=== PATIENT | female | born 1960 | race Caucasian/White ===

== ENCOUNTER 2017-04-16 17:15 | Inpatient (IN) | payer OTHER ==
[2017-05-01] MEDS ORDERED: Heparin 5,000 UNITS/ML VIAL ONE (06:31)
[2017-05-01] MEDS ORDERED: Bupivacaine HCl 0.5%/Epinephrine 1:200,000/PF 30 ml Vial ONE (06:49)
[2017-05-01] MEDS ORDERED: Midazolam HCl 2 mg/2 ml Vial ONE ×3 (06:52→07:05)
[2017-05-01] MEDS ORDERED: Fentanyl 100 MCG/2 ML VIAL ONE ×3 (06:52→07:01)
[2017-05-01] MEDS ORDERED: Dexamethasone 4 mg/ml Vial ONE (07:02)
[2017-05-01] MEDS ORDERED: Ketorolac Tromethamine 30 MG/ML VIAL ONE (07:35)
[2017-05-01] MEDS ORDERED: Ondansetron HCl/PF 4 MG/2 ML Vial ONE (07:35)
[2017-05-01] MEDS ORDERED: Dexamethasone 20 MG/5 ML VIAL ONE (07:35)
[2017-05-01] MEDS ORDERED: Glycopyrrolate 0.2 MG/ML 5 ML SYRINGE ONE (07:35)
[2017-05-01] MEDS ORDERED: ePHEDrine/0.9% NaCl/PF SYRINGE 50 mg/10 ml ONE (07:35)
[2017-05-01] MEDS ORDERED: Lidocaine 1% PF 5 ML VIAL ONE (07:35)
[2017-05-01] MEDS ORDERED: Propofol 200 MG/20 ML VIAL ONE (07:35)
[2017-05-01 07:37] LABS: Hemoglobin A1c 5.9 % (4.0-6.0)
[2017-05-01] MEDS ORDERED: Fentanyl 20 MCG/ML 250 ML ONE (09:00)
[2017-05-01] MEDS ORDERED: Fentanyl 5000 MCG/250 ML CADD IVPB PRN (09:01)
[2017-05-01] MEDS ORDERED: Promethazine HCl 25 MG/ML VIAL IM PRN ×3 (09:01→12:02)
[2017-05-01] MEDS ORDERED: Naloxone HCl 0.4 mg/ml Vial IV PRN (09:01)
[2017-05-01] MEDS ORDERED: Meperidine HCl/PF 25 MG/ML VIAL SLOW IVP PRN (09:01)
[2017-05-01] MEDS ORDERED: Zolpidem Tartrate 5 MG TAB PO PRN (09:01)
[2017-05-01] MEDS ORDERED: diphenhydrAMINE HCl 50 MG/ML 1 ML VIAL IM PRN (09:01)
[2017-05-01] MEDS ORDERED: diphenhydrAMINE HCl 25 MG CAP PO PRN (09:01)
[2017-05-01] MEDS ORDERED: Promethazine HCl 25 MG/ML VIAL SLOW IVP PRN (09:01)
[2017-05-01] MEDS ORDERED: Ondansetron HCl/PF 4 MG/2 ML Vial IVP PRN ×3 (09:01→12:02)
[2017-05-01] MEDS ORDERED: diphenhydrAMINE HCl 50 MG/ML 1 ML VIAL IVP PRN ×2 (09:01→12:02)
[2017-05-01] MEDS ORDERED: Ketorolac Tromethamine 30 MG/ML VIAL IVP PRN (09:01)
[2017-05-01] MEDS ORDERED: Communication Order-Pharmacy FS SCH (09:15)
--- NOTE | 2017-05-01 09:25 | RAD ---
SINGLE VIEW OF THE CHEST: Comparison: None. History: Pre-operative radiograph. FINDINGS: Single view of the chest shows a normal sized cardiomediastinal silhouette. There is no evidence of consolidation, mass, or pleural effusion. The bones are unremarkable. IMPRESSION: No evidence of acute cardiopulmonary disease. POS: [facility]
--- NOTE | 2017-05-01 09:45 | OP ---
DATE OF PROCEDURE: 05/01/2017 PREOPERATIVE DIAGNOSIS: Morbid obesity with a BMI of 40. POSTOPERATIVE DIAGNOSIS: Morbid obesity with a BMI of 40. PROCEDURES PERFORMED: 1. Laparoscopic sleeve gastrectomy. 2. Roscoe staple line reinforcements and 38 Upper Sorbian bougie. 3. EGD. SURGEON: Dr. Subramanian. ANESTHESIA: General. ESTIMATED BLOOD LOSS: Minimal. COMPLICATIONS: None. SPECIMEN: Stomach. FINDINGS: Normal postoperative EGD. INDICATION: The patient is a 57-year-old female who presents for weight loss surgery, has a long hi story of being overweight. She has been in our preoperative seminar as well as the sleeve gastrecto my education classes. She has had a psychologic evaluation. She understands risks, benefits, speci fic to sleeve as well as potential alternative procedures for weight loss. She gives consent. TECHNIQUE: The patient was taken to the operating room and laid supine on the operating room table. After general anesthetic was obtained, the arms and legs were double strapped to bariatric table. OG tube was used to decompress the stomach. Left subcostal 5-mm Optiview trocar was placed in the usual fashion and high-flow pneumoperitoneum was obtained. Left and right abdominal 12-mm port and a right subcostal 5-mm port were all placed under direct visualization. A 5 mm incision made at the xiphoid and the Katelin was used to raise the liver off the GE junction. Short gastrics were corine en down from a distance of 5 cm proximal to the pylorus all the way up to the angle of His. The pos terior fundus, left cipriano and angle of His was completely dissected. All posterior stomach adhesions were taken down. The OG tube was removed and a 38 bougie was brought in and its tip left in the an trum of the stomach. Multiple loads of an Adell stapling device with Roscoe staple line reinforceme nts were used to perform the sleeve. The first was a green load. The rest were all gold loads all the way to the angle of His. The first load was fired up at a distance of 6 cm proximal to the pylo catia angled up towards the incisura. Care was taken to avoid being too close to the incisura. Multi ple loads were then fired up and the stomach was completely transected at the angle of His. The sto mach was removed from left abdominal incision. This fascial defect was closed using GraNee needle a nd 0 Vicryl tie. All port sites were infiltrated using local anesthetic. A few bleeders on the sta ple line were clipped using the laparoscopic clipping device. EGD scope was passed via the esophagu s, stomach to the level of the duodenum without obstruction. There was no stricture at the incisura . There was no air leakage through the staple line. EGD scope was used to decompress the stomach, was pulled and removed. The Katelin retractor was removed under visualization without bleeding. Pneumoperitoneum was let down. The Vicryl was used to close the fascial defect from left abdominal incision. All incisions were irrigated and closed using 4-0 Monocryl and Dermabond. The patient wa s en route to recovery in stable condition. All instrument counts, needle counts, and lap counts we re correct.
[2017-05-01] MEDS ORDERED: Dextrose 5% in Water 1,000 ML IV PRN (12:02)
[2017-05-01] MEDS ORDERED: Dextrose 50% Abboject 50 ML SYRINGE SLOW IVP PRN (12:02)
[2017-05-01] MEDS ORDERED: Pantoprazole 40 MG VIAL IVP SCH (12:15)
[2017-05-01] MEDS: Acetaminophen 1,000 MG in Premix Bag 1 BAG IVPB SCH ×2 (15:55→19:55)
[2017-05-01] MEDS: D5 1/2 NS w/20 mEq KCL 1,000 ML IV SCH ×2 (16:17→20:54)
[2017-05-01 19:39] VITALS: BMI 40.8
[2017-05-01] MEDS ORDERED: Enoxaparin Sodium 40 MG/0.4 ML SYRINGE SC SCH (21:00)
[2017-05-02] MEDS: Acetaminophen 1,000 MG in Premix Bag 1 BAG IVPB SCH (01:42)
[2017-05-02 06:38] LABS: #Eosinphils 0.1 thou/uL (0.0-0.7); #Lymphocytes 2.7 thou/uL (1.20-3.40); #Monocytes 1.1 thou/uL (0.11-0.59); #Neutrophils 8.1 thou/uL (1.40-6.50); %Basophils 0.4 % (0.0-1.0); %Lymphocytes 22.2 % (21.0-51.0); %Monocytes 8.8 % (0.0-10.0); Hematocrit 40.4 % (36.0-47.0); Mean Platelet Volume 8.4 fL (7.4-10.4); Red Blood Cell (RBC) Count 4.54 mill/uL (4.20-5.40)
[2017-05-02] MEDS: D5 1/2 NS w/20 mEq KCL 1,000 ML IV SCH ×2 (06:50→11:43)
[2017-05-02 06:56] LABS: Anion Gap 18 mmol/L (10-20); BUN (Urea Nitrogen) 8 mg/dL (9.8-20.1); Calc. Creatinine Clearance 124 mL/min (70-130); Calcium 9.1 mg/dL (7.8-10.44); Carbon Dioxide 18 mmol/L (22-29); Chloride 108 mmol/L (98-107); Estimated GFR-MDRD 76
[2017-05-02] MEDS ORDERED: Pantoprazole 40 MG VIAL IVP SCH (09:00)
--- NOTE | 2017-05-02 09:35 | RAD ---
15 ML SWALLOW: History: Status post bariatric surgery. Post op day 1. Comparison: None Exposure: 0.6 minutes, 18.699 mGy*cm\S\2 FINDINGS: The patient was administered 15 cc of Gastrografin. No evidence of delay in passage. No leak or extr avasation. IMPRESSION: No leak or extravasation. POS: [facility]
[2017-05-02] MEDS ORDERED: Hydrocodone-Acetamin 15 ML UDCUP PO PRN (11:47)
[2017-05-02 12:06] VITALS: BP 126/84; TEMP 98.5
[2017-05-11] MEDS ORDERED: Hydrocodone-Acetamin 15 ML UDCUP PO PRN (12:02)
== END 2017-05-02 12:40 | disposition home or self-care (01) | DRG 621 ==
LOC: SURG A 05-01 06:11
PROVIDERS: ADMIT Surgery; ATTEND Surgery
PROC: 0DB64Z3 Excision of Stomach, Percutaneous Endoscopic Approach, Vertical (ICD-10-PCS; principal; 2017-05-01)
PROC: 0DJ08ZZ Inspection of Upper Intestinal Tract, Via Natural or Artificial Opening Endoscopic (ICD-10-PCS; 2017-05-01)
DX: E66.01 Morbid (severe) obesity due to excess calories (principal); E78.5 Hyperlipidemia, unspecified; Z68.41 Body mass index [BMI] 40.0-44.9, adult; Z88.8 Allergy status to other drugs, medicaments and biological substances; M19.90 Unspecified osteoarthritis, unspecified site; K57.90 Diverticulosis of intestine, part unspecified, without perforation or abscess without bleeding; F41.9 Anxiety disorder, unspecified
CPT/HCPCS: 36415; 71010; 74241; 80048; 83036; 85025; 88307; 88312; 94760; C9113; J0131; J0670; J1100; J1170; J1644; J1650; J1885; J2001; J2250; J2405; J2704; J3010

== ENCOUNTER 2021-03-18 15:44 | Outpatient (CLI) | payer OTHER ==
[2021-03-18 17:16] LABS: Bilirubin Neg (Negative); Blood, Urine Negative (Negative); Clarity Clear (Clear); Glucose, Urine (Dipstick) Normal (Negative); Ketone, Urine Negative (Negative); Leukocyte Negative (Negative); Nitrite Negative (Negative); Protein, Urine (Dipstick) Negative (Neg-Trace); Specific Gravity, Urine 1.005 (1.002-1.036); Urobilinogen Normal mg/dL (Less than 2); pH, Urine 6.5 (5.0-9.0)
[2021-03-18 17:36] LABS: #Basophils 0.1 10x3/uL (0.0-0.2); #Eosinphils 0.3 10x3/uL (0.0-0.5); #Monocytes 0.6 10x3/uL (0.0-1.1); #Neutrophils 5.5 10x3/uL (1.5-8.4); %Basophils 1.1 % (0.0-2.0); %Eosinophils 2.8 % (0.0-6.0); %Lymphocytes 28.8 % (18.0-47.0); %Monocytes 6.8 % (0.0-10.0); %Neutrophils 60.2 % (40.0-75.0); Mean Corpuscular HGB CONC 33.1 g/dL (32.0-36.0); Mean Corpuscular Hemoglobin 28.6 pg (27.0-33.0); Mean Corpuscular Volume 86.6 fl (81.6-98.3); Mean Platelet Volume 9.7 fl (7.4-10.4); Platelet Count 305 10x3/uL (150-450); RBC Distribution Width 13.4 % (11.5-14.5); Red Blood Cell (RBC) Count 4.54 10x6/uL (3.90-5.03); White Blood Cell (WBC) Count 9.1 10x3/uL (3.5-10.5)
[2021-03-18 17:55] LABS: Bacteria/HPF Rare-Few HPF (None Seen); RBC/HPF None Seen HPF (0-3); Squamous Epithelial 0-3 HPF (0-3); WBC/HPF 0-3 HPF (0-3)
[2021-03-19 16:44] LABS: SARS-CoV-2 PCR by NAA Not Detected (NotDetected)
== END 2021-03-18 15:45 | disposition home or self-care (01) ==
LOC: LABBT 15:44
PROVIDERS: ATTEND Orthopaedic Surgery Hand Surgery
DX: Z01.818 Encounter for other preprocedural examination (principal); S52.501A Unspecified fracture of the lower end of right radius, initial encounter for closed fracture; Z20.822 Contact with and (suspected) exposure to COVID-19
CPT/HCPCS: 81001; 85025; 93005; 93010; U0003; U0005

== ENCOUNTER 2021-03-23 11:32 | Day surgery (SDC) | payer OTHER ==
[2021-03-22 11:17] VITALS: BMI 30.2
[2021-03-23] MEDS ORDERED: PHENYLEPHRINE-NS 100 MCG/ML 10 ML SYRINGE ONE (12:10)
[2021-03-23] MEDS ORDERED: Bupivacaine HCl 0.5%/Epinephrine 1:200,000/PF 30 ml Vial ONE (12:10)
[2021-03-23] MEDS ORDERED: Ondansetron PF 4 MG/2 ML Vial ONE (12:10)
[2021-03-23] MEDS ORDERED: Dexamethasone 20 MG/5 ML VIAL ONE (12:10)
[2021-03-23] MEDS ORDERED: PROPOFOL 200 MG/20 ML VIAL ONE (12:10)
[2021-03-23] MEDS ORDERED: Lidocaine 1% PF 5 ML VIAL ONE (12:10)
[2021-03-23] MEDS ORDERED: Midazolam HCl 2 mg/2 ml Vial ONE (12:17)
[2021-03-23] MEDS ORDERED: Fentanyl 100 MCG/2 ML VIAL ONE (13:27)
[2021-03-23] MEDS ORDERED: Bupivacaine PF 0.5% 30 ML VIAL ONE (13:29)
[2021-03-23] MEDS ORDERED: Bacitracin Zinc Ointment 30 gm TUBE ONE (13:29)
[2021-03-23] MEDS ORDERED: Neomycin-Polymyxin 1 ML AMP ONE (13:29)
[2021-03-23] MEDS ORDERED: EPINEPHrine 1 MG/ML AMP ONE (13:29)
[2021-03-23] MEDS ORDERED: Ketorolac Tromethamine 30 MG/ML VIAL ONE (17:45)
== END 2021-03-23 19:10 | disposition home or self-care (01) ==
LOC: SDC 11:32
PROVIDERS: ATTEND Orthopaedic Surgery Hand Surgery
DX: S52.501A Unspecified fracture of the lower end of right radius, initial encounter for closed fracture (principal); S52.614A Nondisplaced fracture of right ulna styloid process, initial encounter for closed fracture; M19.90 Unspecified osteoarthritis, unspecified site; E78.00 Pure hypercholesterolemia, unspecified; Z79.899 Other long term (current) drug therapy; Z88.5 Allergy status to narcotic agent; Z88.8 Allergy status to other drugs, medicaments and biological substances; Z91.030 Bee allergy status; W19.XXXA Unspecified fall, initial encounter; Y93.64 Activity, baseball; Y92.39 Other specified sports and athletic area as the place of occurrence of the external cause
CPT/HCPCS: 76000; C1713; J0171; J0690; J1100; J1885; J2250; J2405; J2704; J3010; S0020

== ENCOUNTER 2024-01-31 11:19 | Outpatient (CLI) | payer MEDICARE, OTHER ==
[2024-01-31 12:40] LABS: Bilirubin Neg (Negative); Blood, Urine Negative (Negative); Clarity Clear (Clear); Glucose, Urine (Dipstick) Normal (Negative); Ketone, Urine Negative (Negative); Leukocyte Negative (Negative); Nitrite Negative (Negative); Protein, Urine (Dipstick) Negative (Neg-Trace); Specific Gravity, Urine 1.005 (1.005-1.030); Urobilinogen Normal mg/dL (Less than 2)
[2024-01-31 12:51] LABS: #Basophils 0.07 10x3/uL (0.0-0.2); #Eosinphils 0.26 10x3/uL (0.0-0.5); #Monocytes 0.89 10x3/uL (0.0-1.1); #Neutrophils 7.13 10x3/uL (1.5-8.4); %Basophils 0.7 % (0.0-2.0); %Eosinophils 2.5 % (0.0-6.0); %Lymphocytes 20.9 % (18.0-47.0); %Monocytes 8.4 % (0.0-10.0); %Neutrophils 67.2 % (40.0-75.0); Hematocrit 40.7 % (34.9-44.5); Hemoglobin 13.6 g/dL (12.0-15.5); Mean Corpuscular HGB CONC 33.4 g/dL (32.0-36.0); Mean Corpuscular Hemoglobin 28.6 pg (27.0-33.0); Mean Corpuscular Volume 85.7 fL (81.6-98.3); Mean Platelet Volume 9.8 fL (7.4-10.4); Platelet Count 264 10x3/uL (150-450); RBC Distribution Width 13.6 % (11.5-14.5); Red Blood Cell (RBC) Count 4.75 10x6/uL (3.90-5.03); White Blood Cell (WBC) Count 10.6 10x3/uL (3.5-10.5)
[2024-01-31 13:00] LABS: INR-International Normal Ratio 1.1; Prothrombin Time 11.8 sec (9.5-12.1)
[2024-01-31 13:08] LABS: Anion Gap 13 mmol/L (10-20); BUN (Urea Nitrogen) 13 mg/dL (9.8-20.1); Calc. Creatinine Clearance 0 mL/min (70-130); Calcium 9.4 mg/dL (7.8-10.44); Carbon Dioxide 25 mmol/L (23-31); Chloride 103 mmol/L (98-107); Estimated GFR 81; Glucose 94 mg/dL (80-115); Potassium 4.2 mmol/L (3.5-5.1); Sodium 137 mmol/L (136-145)
== END 2024-01-31 11:20 | disposition home or self-care (01) ==
LOC: LABBT 11:19
PROVIDERS: ATTEND Orthopaedic Surgery
DX: Z01.818 Encounter for other preprocedural examination (principal); M17.0 Bilateral primary osteoarthritis of knee
CPT/HCPCS: 71046; 80048; 81003; 85025; 85610; 87081; 93005; 93010

== ENCOUNTER 2024-02-04 07:09 | Observation (INO) | payer MEDICARE, OTHER ==
[2024-01-31 12:11] VITALS: BMI 33.3
[2024-02-04] MEDS ORDERED: Midazolam HCl 2 mg/2 ml Vial ONE (08:09)
[2024-02-04] MEDS ORDERED: fentaNYL 50 mcg/mL 1 mL Vial ONE ×5 (08:09→13:46)
[2024-02-04] MEDS ORDERED: Bupivacaine PF 0.5% 30 ML VIAL ONE ×2 (08:09→09:32)
[2024-02-04] MEDS ORDERED: Sodium Chloride 0.9% 100 ML ONE ×3 (08:13→14:27)
[2024-02-04] MEDS ORDERED: Vancomycin (BATCH) 1.5 GM/300 ML BAG ONE (08:13)
[2024-02-04] MEDS ORDERED: Tranexamic Acid 1,000 MG/10 ML VIAL ONE ×2 (08:13→14:26)
[2024-02-04] MEDS ORDERED: Bupivacaine HCl 0.5%/Epinephrine 1:200,000/PF 30 ml Vial ONE (08:40)
[2024-02-04] MEDS ORDERED: fentaNYL 50 mcg/mL 1 mL Vial SLOW IVP PRN (08:59)
[2024-02-04] MEDS ORDERED: Ondansetron PF 4 MG/2 ML Vial IVP PRN ×2 (09:00→14:10)
[2024-02-04] MEDS ORDERED: Zolpidem Tartrate 5 MG TAB PO PRN ×2 (09:00→14:10)
[2024-02-04] MEDS ORDERED: Ropivacaine 0.2% 550 ML 550 ML NERVE BLCK SCH (09:00)
[2024-02-04] MEDS ORDERED: HYDROcodone/Acetaminophen 10/325 mg Tablet PO PRN (09:00)
[2024-02-04] MEDS ORDERED: traMADol HCl 50 MG TAB PO PRN ×2 (09:00)
[2024-02-04] MEDS ORDERED: Promethazine HCl 25 MG/ML VIAL IM PRN ×3 (09:00→14:10)
[2024-02-04] MEDS ORDERED: methylPREDNISolone Acetate 40 mg/ml Vial ONE (09:31)
[2024-02-04] MEDS ORDERED: Lidocaine 1% (PF) 30 ML VIAL ONE (09:32)
[2024-02-04] MEDS ORDERED: Dexamethasone 20 MG/5 ML VIAL ONE (09:44)
[2024-02-04] MEDS ORDERED: Lidocaine 1% PF 5 ML VIAL ONE (09:44)
[2024-02-04] MEDS ORDERED: Ondansetron PF 4 MG/2 ML Vial ONE (09:44)
[2024-02-04] MEDS ORDERED: PROPOFOL 20 ML ONE (09:45)
[2024-02-04] MEDS ORDERED: fentaNYL PF 100 MCG/2 ML SYRINGE ONE (09:45)
[2024-02-04] MEDS ORDERED: CEFAZOLIN 2 GM VIAL ONE (09:51)
[2024-02-04] MEDS ORDERED: PHENYLEPHRINE-NS 100 MCG/ML 10 ML SYRINGE ONE (11:09)
[2024-02-04] MEDS ORDERED: Ondansetron HCl/PF 4 MG/2 ML Vial IVP PRN (11:59)
[2024-02-04] MEDS ORDERED: Ketorolac Tromethamine 30 MG (1 mL) VIAL ONE (13:45)
[2024-02-04] MEDS ORDERED: Acetaminophen 325 MG TAB PO PRN (14:10)
[2024-02-04] MEDS ORDERED: diphenhydrAMINE 25 MG CAP PO PRN (14:10)
[2024-02-04] MEDS ORDERED: Tranexamic Acid 1,000 MG in Sodium Chloride 0.9% 100 ML IVPB SCH (14:15)
[2024-02-04] MEDS: Ketorolac Tromethamine 30 MG (1 mL) VIAL IVP SCH (15:41)
[2024-02-04] MEDS: Sodium Chloride 0.9% 1,000 ML IV SCH (17:03)
[2024-02-04] MEDS: HYDROcodone/Acetaminophen 10/325 mg Tablet PO PRN (17:04)
[2024-02-04] MEDS: CEFAZOLIN 2 GM in Sodium Chloride 0.9% 100 ML IVPB SCH (17:05)
[2024-02-04] MEDS: Atorvastatin Calcium 10 MG TAB PO SCH (19:56)
[2024-02-04] MEDS: Aspirin 81 mg Enteric Coated Tablet PO SCH (19:56)
[2024-02-04] MEDS: Vancomycin (BATCH) 1.5 GM in Premix 1 BAG IVPB SCH (19:57)
[2024-02-04] MEDS: Fluticasone Propionate Nasal Spray 16 gm Bottle NASAL SCH (19:57)
[2024-02-05 05:35] LABS: Hematocrit 34.4 % (36.0-47.0); Hemoglobin 11.3 g/dL (12.0-16.0); Mean Corpuscular HGB CONC 32.8 g/dL (32.0-36.0); Mean Corpuscular Hemoglobin 28.3 pg (27.0-31.0); Mean Platelet Volume 9.8 fL (7.4-10.4); Platelet Count 247 10x3/uL (130-400); RBC Distribution Width 13.5 % (11.5-14.5)
[2024-02-05] MEDS: Ferrous Gluconate 324 MG TAB PO SCH (08:23)
[2024-02-05] MEDS: Multivitamin W/ Minerals 1 TAB PO SCH (08:24)
[2024-02-05] MEDS: Sertraline 100 MG TAB PO SCH (08:24)
[2024-02-05] MEDS: Senokot S 8.6-50 MG TAB PO SCH (08:24)
[2024-02-05 11:35] VITALS: BP 133/64; TEMP 98.3
== END 2024-02-05 11:55 | disposition home or self-care (01) ==
LOC: SDC 07:09 → SURG A 15:21
PROVIDERS: ADMIT Orthopaedic Surgery; ATTEND Orthopaedic Surgery
PROC: 0SRC0JZ Replacement of Right Knee Joint with Synthetic Substitute, Open Approach (ICD-10-PCS; principal; 2024-02-04)
PROC: 3E0U33Z Introduction of Anti-inflammatory into Joints, Percutaneous Approach (ICD-10-PCS; 2024-02-04)
DX: M17.0 Bilateral primary osteoarthritis of knee (principal); E78.00 Pure hypercholesterolemia, unspecified; F41.9 Anxiety disorder, unspecified; M19.90 Unspecified osteoarthritis, unspecified site; Z79.899 Other long term (current) drug therapy; Z90.710 Acquired absence of both cervix and uterus; Z98.84 Bariatric surgery status; Z90.89 Acquired absence of other organs; Z88.8 Allergy status to other drugs, medicaments and biological substances; Z88.5 Allergy status to narcotic agent; Z91.030 Bee allergy status
CPT/HCPCS: 20610; 27447; 64447; 85027; 97110 ×2; 97116 ×2; 97530; A4306; C1713; C1776; C1889; J0665; J1030; J1100; J1885 ×2; J2001; J2250; J2405; J2704; J2795; J3010; J3370; J3490 ×2; J7050; 36415